=== PATIENT | female | born 1960 | race Caucasian/White ===

== ENCOUNTER → 2020-12-08 | Outpatient (CLI) | payer OTHER ==
--- NOTE | 2020-12-08 13:49 | 2DMMODE ---
[facility] [place] [address] 2 D/M-MODE ECHOCARDIOGRAM Name: LELA COREY Room #: REG [facility]#: [id number] Admission: 12/08/20 Attend Phys: Edy Mclaughlin MD Discharge: Date of : 62 Report #: [id number] THIS REPORT FOR: cc: Edy Mclaughlin MD, Carnie MD Park, Jin S. MD ~ APPROVED REPORT Study performed: 12/08/2020 12:18:45 EXAM: Comprehensive 2D, Doppler, and color-flow Echocardiogram Patient Location: Out-Patient Status: routine BSA: 1.40 HR: 110 bpm BP: 116/74 mmHg Rhythm: Sinus tachycardia Other Information Study Quality: Adequate Indications Murmur Hx: HTN, HLP, COPD. 2D Dimensions RVDd: 29.64 mm IVSd: 8.97 (7-11mm) LVDd: 33.69 mm PWd: 9.35 (7-11mm) Ascending Ao: 34.22 (22-36mm) LVDs: 20.65 (25-40mm) Left Atrium: 27.24 (27-40mm) Aortic Root: 30.68 mm Volumes Left Atrial Volume (Systole) Single Plane 4CH: 34.50 mL Single Plane 2CH: 23.84 mL LA ESV Index: 23.00 mL/m2 Aortic Valve AoV Peak Nomi.: 1.51 m/s AO Peak Gr.: 9.15 mmHg LVOT Max P.75 mmHg LVOT Max V: 1.48 m/s [facility] [address] [address] 2 D/M-MODE ECHOCARDIOGRAM Name: LELA COREY Room #: REG [facility].#: [id number] Admission: 12/08/20 Attend Phys: Edy Mclaughlin MD Discharge: Date of : 62 Report #: [id number] Mitral Valve E/A Ratio: 0.7 MV Decel. Time: 179.55 ms MV E Max Nomi.: 0.91 m/s MV A Nomi.: 1.24 m/s MV PHT: 52.07 ms IVRT: 96.89 ms Pulmonary Valve PV Peak Nomi.: 0.98 m/s PV Peak Gr.: 3.81 mmHg Tricuspid Valve TR Peak Nomi.: 2.60 m/s RAP Estimate: 5.00 mmHg TR Peak Gr.: 27.02 mmHg PA Pressure: 32.00 mmHg Left Ventricle The left ventricle is normal size. There is normal LV segmental wall motion. There is normal left ventricular wall thickness. Left ventricular systolic function is normal. LVEF is 65-70%. Mild diastolic dysfunction is present (impaired relaxation pattern). Right Ventricle The right ventricle is normal size. The right ventricular systolic function is normal. Atria The left atrium size is normal. The right atrium size is normal. Aortic Valve The aortic valve is normal in structure. Trace aortic regurgitation. There is no aortic valvular stenosis. Mitral Valve The mitral valve is normal in structure. Mild mitral annular calcification. Trace mitral regurgitation. No evidence of mitral valve stenosis. Tricuspid Valve The tricuspid valve is normal in structure. Mild tricuspid regurgitation. Estimated PAP is 30 mmHg. Pulmonic Valve [facility] [address] [place] [address] 2 D/M-MODE ECHOCARDIOGRAM Name: LELA COREY Room #: REG [facility]#: [id number] Admission: 12/08/20 Attend Phys: Edy Mclaughlin MD Discharge: Date of : 62 Report #: [id number] Pulmonic valve is not well visualized. Great Vessels The aortic root is normal in size. The ascending aorta is normal in size. IVC is normal in size and collapses >50% with inspiration. Pericardium There is no pericardial effusion. <Conclusion> The left ventricle is normal size. There is normal left ventricular wall thickness. Left ventricular systolic function is normal. Mild diastolic dysfunction is present (impaired relaxation pattern). The right ventricle is normal size. The left atrium size is normal. The aortic valve is normal in structure. Mild mitral annular calcification. Trace mitral regurgitation. Mild tricuspid regurgitation. <ELECTRONICALLY SIGNED> By: Cristian Kirk MD 12/08/20 1348 [id number] Cristian Kirk MD /DAYAN
== END ==
LOC: CV 12:59
PROVIDERS: ATTEND Internal Medicine
DX: I08.1 Rheumatic disorders of both mitral and tricuspid valves (principal); R00.0 Tachycardia, unspecified; R01.1 Cardiac murmur, unspecified